=== PATIENT | female | born 1990 | race Caucasian/White ===

== ENCOUNTER 2016-08-20 11:21 | Day surgery (SDC) | payer OTHER ==
[2016-08-19 17:24] VITALS: BMI 22.3
[2016-08-20 11:52] LABS: BASOPHIL 0.3 % (0-2.0); EOSINOPHIL 1.3 % (0-4.5); MCH 30.4 pg (25.7-33.7); MCHC 34.3 g/dl (32.0-36.0); MEAN CELL VOLUME 88.8 fl (80-96); MEAN PLT VOLUME 7.6 fl (7.5-11.1); NEUTROPHILS 63.9 % (42.8-82.8); PLATELET COUNT 274 K/MM3 (134-434); RDW 13.2 % (11.6-15.6); WHITE BLOOD COUNT 6.3 K/mm3 (4.0-10.0)
--- NOTE | 2016-08-20 12:00 | HP ---
Admitting History and Physical - Admission Chief Complaint: Abnormal History of Present Illness: 26 yo , with early gestation, is Pre op for suction D&C. Patient had an office sonogram that showed an empty sac. She's complaining of back pain. She was sent for a second sonogram but never went. History Source: Patient Limitations to Obtaining History: No Limitations - Past Medical History ...LMP: 06/24/16 ...: Yes (BLIGHTED OVUM) ...: 1 ...Para: 0 - Past Surgical History Past Surgical History: Yes: None - Smoking History Smoking history: Never smoked Have you smoked in the past 12 months: No - Alcohol/Substance Use Hx Alcohol Use: No History of Substance Use: reports: None - Social History Usual Living Arrangement: Yes: With Significant Other History of Recent Travel: No Home Medications - Allergies Allergies/Adverse Reactions: Allergies Allergy/AdvReac Type Severity Reaction Status Date / Time No Known Drug Allergies Allergy Verified 08/19/16 17:31 - Home Medications Home Medications: Ambulatory Orders Ibuprofen [Advil -] 200 mg PO PRN 08/19/16 Vit/Iron Fumarate/FA [ Tablet] 1 each PO DAILY 08/19/16 Family Disease History - Family Disease History Family History: Unremarkable Review of Systems - Review of Systems Constitutional: reports: No Symptoms Eyes: reports: No Symptoms HENT: reports: No Symptoms Neck: reports: No Symptoms Cardiovascular: reports: No Symptoms Respiratory: reports: No Symptoms Gastrointestinal: reports: No Symptoms Genitourinary: reports: No Symptoms Breasts: reports: No Symptoms Reported Musculoskeletal: reports: No Symptoms Integumentary: reports: No Symptoms Neurological: reports: No Symptoms Endocrine: reports: No Symptoms Hematology/Lymphatic: reports: No Symptoms Psychiatric: reports: No Symptoms Pain Intensity: 4 Physical Examination Constitutional: Yes: Well Nourished Eyes: Yes: Conjunctiva Clear HENT: Yes: Atraumatic Neck: Yes: Supple Cardiovascular: Yes: Regular Rate and Rhythm Respiratory: Yes: Regular Gastrointestinal: Yes: Normal Bowel Sounds Musculoskeletal: Yes: Back Pain Extremities: Yes: WNL Neurological: Yes: Alert, Oriented Psychiatric: Yes: Alert, Oriented Problem List - Problems (1) Blighted ovum Code(s): O02.0 - BLIGHTED OVUM AND NONHYDATIDIFORM MOLE Assessment/Plan Blighted Ovum R/O Missed Pre op for suction D&C Consent signed Anesthesia to see patient
--- NOTE | 2016-08-20 14:03 | OP ---
[id number] Ovum Operation: Suction D&C Post-Operative Diagnosis: Same as Pre-op Surgeon: Cherelle Hampton Anesthesia: General
[2016-08-20] MEDS ORDERED: MIDAZOLAM HCL 2 MG/2 ML SINGLE DOSE VIAL ONE (14:18)
[2016-08-20] MEDS ORDERED: PROPOFOL 20 ML ONE (14:22)
[2016-08-20] MEDS ORDERED: SUCCINYLCHOLINE CHLORIDE 200 MG/10 ML VIAL ONE (14:22)
[2016-08-20] MEDS ORDERED: DEXAMETHASONE SOD PHOSPHATE 4 MG/1 ML VIAL ONE (14:30)
[2016-08-20] MEDS ORDERED: ONDANSETRON 4 MG/2 ML VIAL ONE (14:30)
[2016-08-20] MEDS ORDERED: oxyCODONE HCL 5 MG TABLET PO PRN (16:35)
[2016-08-20] MEDS ORDERED: ONDANSETRON 4 MG/2 ML VIAL IVPUSH PRN (16:35)
[2016-08-20] MEDS ORDERED: LACTATED RINGERS SOLUTION 1,000 ML IV SCH (16:45)
[2016-08-20 17:13] VITALS: TEMP 98.9
[2016-08-20 18:46] VITALS: BP 94/56; PULSE 66
--- NOTE | 2016-08-21 09:38 | OP ---
DATE OF OPERATION: 08/20/2016 PREOPERATIVE DIAGNOSIS: Blighted ovum. POSTOPERATIVE DIAGNOSIS: Blighted ovum. PROCEDURE: Suction dilatation and curettage. SURGEON: Cherelle Hampton MD ANESTHESIA: General. COMPLICATIONS: None. ESTIMATED BLOOD LOSS: 20 mL. DESCRIPTION OF PROCEDURE: Patient was taken to the operating room where general anesthesia was administered. Patient was then placed in lithotomy position. She was then prepped and draped in proper sterile fashion. A weighted speculum was placed in the vagina. The anterior lip of the cervix was grasped with a single-tooth tenaculum. The cervical os was then sequentially dilated with Lobo dilators, and a 7-mm suction curette was then gently introduced into the uterine cavity. The suction device was activated, and the curet rotated to clear the uterus of all products of conception. A sharp curettage was then performed. The curet was then reintroduced to clear the uterus of all remaining products of conception. Then, the instruments were removed. The patient was taken out of lithotomy position. She was taken to PACU in stable condition. PATHOLOGY: Products of conception. Ariadne [id number] MTDD
--- NOTE | 2016-08-22 14:02 | PATH ---
Surgical Pathology Report Patient Name: LAWANDA FORBES Med. Rec. #: [id number] /Age/Gender: 1990 (Age: 26) / F Account: [id number] Location: [facility] Taken: 08/20/2016 Received: 08/21/2016 Reported: 08/22/2016 Physicians: Cherelle Hampton M.D. Specimen(s) Received UTERINE CONTENTS Clinical History Blighted ovum Final Diagnosis UTERINE CONTENTS: NO SOMATIC TISSUE IDENTIFIED. CHORIONIC VILLI PRESENT, PARTIALLY FIBROTIC AND HYDROPIC. FRAGMENTS OF DECIDUA. Electronically Signed Peter Ga M.D. Gross Description Received in formalin labeled "uterine content" is an 8.5 x 5.0 x 1.0 cm aggregate of lynch-red soft tissue fragments. No definite villous tissue or somatic tissue is grossly identified. Telephoto Engineer portions are submitted in 3 cassettes. /08/21/2016 saudi/08/21/2016
== END 2016-08-20 18:48 | disposition home or self-care (01) ==
LOC: JASU-SURG 11:21
PROVIDERS: ATTEND Obstetrics & Gynecology
PROC: 10D07Z6 Extraction of Products of Conception, Vacuum, Via Natural or Artificial Opening (ICD-10-PCS; principal; 2016-08-20 13:00)
DX: O02.0 Blighted ovum and nonhydatidiform mole (principal)
CPT/HCPCS: 36415; 76830-TC; 76856-TC; 85025; 86850; 86900; 86901; 88305-TC; 94760

== ENCOUNTER 2018-12-01 09:32 | Emergency (ER) | payer OTHER ==
[2018-12-01 09:53] VITALS: BP 97/57; PULSE 87; TEMP 98.4; BMI 21.7
[2018-12-01] MEDS ORDERED: IBUPROFEN 600 MG TABLET (FP) PO ONE ×2 (10:32→10:40)
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
== END 2018-12-01 10:52 | disposition home or self-care (01) ==
LOC: JERFT 09:32
DX: Z04.1 Encounter for examination and observation following transport accident (principal); V43.52XA Car driver injured in collision with other type car in traffic accident, initial encounter; Y93.89 Activity, other specified; Y92.410 Unspecified street and highway as the place of occurrence of the external cause
CPT/HCPCS: 99281-25